=== PATIENT | male | born 1980 | race Hispanic/Latino ===

== ENCOUNTER 2020-04-19 12:59 | Emergency (ER) | payer SELFPAY ==
--- NOTE | ~2020-04-19 | XR_ITS ---
XR cervical spine 4-5V DATE: 04/19/2020 13:57 INDICATION: Left neck pain for one week TECHNIQUE: AP, open-mouth, lateral, swimmer views COMPARISON: None FINDINGS: C1 and C2 are normally aligned and the odontoid process is intact. No fracture or dislocati on or locked facet or prevertebral soft tissue swelling. The cervical interspaces are preserved. IMPRESSION: No significant abnormality Reviewed, dictated and finalized at location [facility]. [facility] IMPRESSION: No significant abnormality
[2020-04-19 13:05] VITALS: BP 153/95; PULSE 76; RESP 16; TEMP 37.2; O2SAT 99
[2020-04-19] MEDS: KETOROLAC (*BKC) 60 MG/2 ML VIAL IM (13:41)
--- NOTE | 2020-04-19 13:41 | ED.GENADULT ---
HPI - General Adult General Chief complaint: Neck Pain/Injury Stated complaint: neck pain Source: patient and family Mode of arrival: ambulatory Limitations: no limitations History of Present Illness HPI narrative: Patient presents for evaluation and treatment of posterior neck pain with radiation down the left upper extremity since last Saturday. He cannot identify any precipitating cause or injury. He states the pain is intermittent, with approximately 3 episodes since last Saturday. He states that pain in the posterior neck as sharp and throbbing. He experiences numbness and tingling down the left upper extremity into the fourth and fifth digits of the left hand. He cannot identify any aggravating or alleviating causes. Denies any chest pain or shortness of breath. He is right-hand dominant. He tried taking Tylenol for pain with minimal improvement in his symptoms or after. At maximum his pain is 6 out of 10 in severity. Current pain level is 4 out of 10 in severity, with majority of pain in the posterior neck and occipital region of the head. No asphasia, dysphagia or other neurological complaints. Related Data Home Medications Medication Instructions Recorded Confirmed amlodipine 5 mg PO DAILY 04/19/20 04/19/20 Allergies Allergy/AdvReac Type Severity Reaction Status Date / Time No Known Allergies Allergy Verified 04/19/20 13:42 Review of Systems Review of Systems: Narrative: CONSTITUTIONAL: Denies fever, chills, or sweats. EYES: Denies visual changes, redness, or discharge. ENT: Denies rhinorrhea, congestion, sore throat, or otalgia. CARDIOVASCULAR: Denies chest pain, palpitations, or edema. RESPIRATORY: Denies cough or dyspnea. GASTROINTESTINAL: Denies abdominal pain, nausea, vomiting, or diarrhea. GENITOURINARY: Denies dysuria or hematuria. SKIN: Denies rash or itching. MUSCULOSKELETAL: Denies back pain, joint pain, or myalgia. Reports posterior neck pain with radiation down LUE. NEUROLOGIC: Denies dizziness, or weakness. Reports numbness and tingling in LUE, particularly into 4th and 5th digits of left hand PSYCHIATRIC: Denies anxiety or depression. 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 HEAD: Normocephalic, atraumatic. EYES: PERRLA and EOMI. ENT: Nares clear, no rhinorrhea or epistaxis. Mucous membranes moist. Oropharynx without tonsillar hypertrophy exudate or other lesions. Bilateral TMs pearly everett nonbulging NECK: Supple. No adenopathy or masses. No carotid bruits or JVD. No tenderness to midline or paraspinous muscles bilaterally of the cervical spine. No tenderness over the trapezius. CHEST: Clear to auscultation. No respiratory distress. No wheezes rales or rhonchi HEART: Regular rate and rhythm. No murmur heard. Normal peripheral pulses. ABDOMEN: Soft, nontender, nondistended, normal active bowel sounds. EXTREMITIES: Normal range of motion. No edema. Full range of motion of the left shoulder left elbow. 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 SKIN: Warm, dry, no rash. NEURO: No focal deficits. Alert a
== END 2020-04-19 14:20 | disposition home or self-care (01) ==
PROVIDERS: Emergency Provider Nurse Practitioner
DX: M54.12 Radiculopathy, cervical region (principal)
CPT/HCPCS: 72050; 96372; 99203; G0463; J1885

== ENCOUNTER 2020-08-31 13:41 | Emergency (ER) | payer SELFPAY ==
--- NOTE | 2020-08-31 13:50 | ED.GENADULT ---
HPI - General Adult General Chief complaint: Skin/Abscess/Foreign Body Stated complaint: right leg infection Time Seen by Provider: 08/31/20 13:51 Source: patient Mode of arrival: ambulatory Limitations: no limitations History of Present Illness HPI narrative: Patient is Armenian-speaking. Patient does have his niece with him today who is interpreting for him. 40-year-old male patient presents to the [facility] with complaints of a wound to the right romero. Patient states he hit himself with a hammer to his right romero about a week ago. Patient states he has been cleaning it with hydrogen peroxide and alcohol and putting antibiotic ointment on it but it continues to get worse. Patient states this past Saturday he noticed a little bit of clear discharge coming from the wound. Denies fevers, body aches or chills. Denies history of diabetes. Related Data Home Medications Medication Instructions Recorded Confirmed amlodipine 5 mg PO DAILY 04/19/20 08/31/20 Allergies Allergy/AdvReac Type Severity Reaction Status Date / Time No Known Allergies Allergy Verified 08/31/20 14:00 Review of Systems Review of Systems: Narrative: CONSTITUTIONAL: Denies fever, chills, or sweats. EYES: Denies visual changes, redness, or discharge. ENT: Denies rhinorrhea, congestion, sore throat, or otalgia. CARDIOVASCULAR: Denies chest pain, palpitations, or edema. RESPIRATORY: Denies cough or dyspnea. GASTROINTESTINAL: Denies abdominal pain, nausea, vomiting, or diarrhea. GENITOURINARY: Denies dysuria or hematuria. SKIN: Denies rash or itching. Positive wound to right romero x1 week. MUSCULOSKELETAL: Denies back pain, joint pain, or myalgia. NEUROLOGIC: Denies headache, numbness, or weakness. PSYCHIATRIC: Denies anxiety or depression. [facility] Past Medical History Medical History (Updated 08/31/20 @ 14:23 by CHELSEA Kieta) Hypertension Surgical History Surgical History No pertinent past surgical history Family History Family History Father Diabetes mellitus Coronary artery disease Mother No pertinent past medical history Social History Social History (Reviewed 08/31/20 @ 13:51 by ANTONI Keita Smoking status: Never smoker Alcohol intake: never Substance use: never Additional occupation/education comments: produce Gender identity (if verbalized by the patient): Male Spiritual care concerns: No Comments At the time of my signature I agree with nursing past medical history, surgical, social, and family history. There is no relevant family history pertinent to the presenting complaint. Exam Narrative: Exam Narrative: GENERAL: Well-appearing, well-nourished, and in no acute distress. HEAD: Normocephalic, atraumatic. EYES: PERRLA and EOMI. ENT: Nares clear, no rhinorrhea or epistaxis. Mucous membranes moist. NECK: Supple. No lymphadenopathy CHEST: Clear to auscultation. No respiratory distress. HEART: Regular rate and rhythm. No murmur heard. Normal peripheral pulses. ABDOMEN: Soft, nontender, nondistended, normal active bowel sounds. EXTREMITIES: Normal range of motion. No edema. SKIN: Warm, dry, no rash. Patient has a wound to the anterior right romero. There is a small black scab opening measuring approximately 1 cm x 0.8 cm. There is a surrounding erythema noted measuring approximately 6.5 x 4 cm. There is no warmth or active discharge at this time. NEURO: No focal deficits. Alert and oriented x3. Course Vital Signs Vital signs: Vital Signs Temperature 36.8 C 08/31/20 14:06 Pulse Rate 66 08/31/20 14:06 Respiratory Rate 16 08/31/20 14:06 Blood Pressure 149/99 H 08/31/20 14:06 Pulse Oximetry 100 08/31/20 14:06 Temperature 36.8 C 08/31/20 14:06 Pulse Rate 66 08/31/20 14:06 Respiratory Rate 16 08/31/20 14:06 Blood Pressure 149/99 H 08/31/20 14:06 Pulse Oxim
[2020-08-31 14:06] VITALS: BP 149/99; PULSE 66; RESP 16; TEMP 36.8; O2SAT 100
[2020-08-31] MEDS: TETANUS,DIPHTHERIA,AC PERTUSSIS ADULT (0.5 ML) BOOSTRIX IM (14:17)
== END 2020-08-31 14:42 | disposition home or self-care (01) ==
PROVIDERS: Emergency Provider Nurse Practitioner Family
DX: L03.115 Cellulitis of right lower limb (principal); S81.801A Unspecified open wound, right lower leg, initial encounter; W27.8XXA Contact with other nonpowered hand tool, initial encounter; Z23 Encounter for immunization; I10 Essential (primary) hypertension
CPT/HCPCS: 90471; 90715; 99213; G0463

== ENCOUNTER 2021-12-26 15:34 | Emergency (ER) | payer SELFPAY | END 2021-12-26 15:44 | disposition left against medical advice (07) | LOC: ANHED 12-27 04:26 | DX: Z53.21 Procedure and treatment not carried out due to patient leaving prior to being seen by health care provider (principal) | CPT/HCPCS: 99199 ==